=== PATIENT | male | born 1930 | race Caucasian/White ===

== ENCOUNTER 2018-03-27 00:25 | Emergency (ER) | payer OTHER ==
[2018-03-27] MEDS: ACETAMINOPHEN 325 MG TAB PO (01:06)
== END 2018-03-27 02:31 | disposition home or self-care (01) ==
LOC: E/R 00:25
DX: K40.90 Unilateral inguinal hernia, without obstruction or gangrene, not specified as recurrent (principal)
CPT/HCPCS: 99283

== ENCOUNTER 2018-05-22 11:33 | Emergency (ER) | payer OTHER ==
[2018-05-22] MEDS: IBUPROFEN 200 MG TAB PO (12:30)
== END 2018-05-22 14:25 | disposition home or self-care (01) ==
LOC: E/R 11:33
DX: S39.81XA Other specified injuries of abdomen, initial encounter (principal); S09.90XA Unspecified injury of head, initial encounter; R40.2142 Coma scale, eyes open, spontaneous, at arrival to emergency department; R40.2252 Coma scale, best verbal response, oriented, at arrival to emergency department; R40.2362 Coma scale, best motor response, obeys commands, at arrival to emergency department; F17.210 Nicotine dependence, cigarettes, uncomplicated; Y04.2XXA Assault by strike against or bumped into by another person, initial encounter
CPT/HCPCS: 74176; 99284-25